=== PATIENT | male | born 1970 | race Caucasian/White ===

== ENCOUNTER 2018-04-09 19:50 | Emergency (ER) | payer BC ==
--- NOTE | 2018-04-09 19:55 | ER Report ---
History and Physical Time Seen By MD: 19:55 HPI/ROS CHIEF COMPLAINT: Hypoxia, fever, cough HISTORY OF PRESENT ILLNESS: 47-year-old male sent over from urgent care with a mildly elevated d-dimer. Patient had a chest x-ray which shows bilateral peribronchial thickening and a right lower lobe infiltrate suspicious for pneumonia. His white blood cell counts normal. His d-dimer slightly elevated at 0.51. Patient was told he needs a CTA pulmonary angiogram to rule out clots. REVIEW OF SYSTEMS: Respiratory: As above Cardiovascular: No chest pain, no palpitations. Gastrointestinal: No vomiting, no abdominal pain. Musculoskeletal: No back pain. Allergies: Coded Allergies: No Known Drug Allergies (Unverified , 04/09/18) Home Meds Active Scripts Levofloxacin 500 Mg Tab (LEVAQUIN 500 MG TAB) 500 Mg Tablet, 500 MG PO DAILY for infection, #6 TAB Prov:BIBI TAYLOR DO 04/09/18 Reported Medications Lisinopril (LISINOPRIL) 10 Mg Tablet, 10 MG PO QDAY, TAB 04/09/18 Atorvastatin Calcium (LIPITOR) 20 Mg Tablet, 1 TAB PO QDAY, TAB 04/09/18 Reviewed Nurses Notes: Yes Old Medical Records Reviewed: Yes Constitutional Vital Sign - Last 24 Hours 04/09/18 04/09/18 04/09/18 04/09/18 19:54 19:56 20:00 20:05 Temp 98.8 Pulse 95 92 Resp 14 B/P (MAP) 143/98 (113) 143/98 151/100 (117) Pulse Ox 91 90 O2 Delivery Room Air 04/09/18 04/09/18 04/09/18 04/09/18 20:20 20:30 20:35 21:01 B/P (MAP) 141/93 (109) 134/89 (104) Pulse Ox 89 89 04/09/18 04/09/18 04/09/18 04/09/18 21:05 21:20 21:30 21:35 Pulse 87 86 77 B/P (MAP) 116/85 (95) Pulse Ox 88 88 88 04/09/18 04/09/18 04/09/18 21:40 21:55 22:00 Pulse 81 B/P (MAP) 124/88 (100) Pulse Ox 89 89 90 Physical Exam General Appearance: The patient is alert, has no immediate need for airway protection and no current signs of toxicity., Pulse ox 88% on room air HEENT: Pupils equal and round no injection. Oropharynx without redness or exudate, mucous. Membranes are moist Respiratory: Chest is non tender, right lower lobe Rales, Cardiac: regular rate and rhythm Gastrointestinal: Abdomen is soft and non tender, no masses, bowel sounds normal. Musculoskeletal: Neck: Neck is supple and non tender. Extremities have full range of motion and are non tender. Skin: No rashes or lesions. DIFFERENTIAL DIAGNOSIS: After history and physical exam differential diagnosis was considered for shortness of breath including but not limited to pulmonary infectious process, COPD, asthma, pulmonary embolus and congestive heart failure. Medical Decision Making EKG/Imaging Imaging Results: CT scan of the CTA pulmonary angiogram was obtained. The results of the study are EXAMINATION: CTA of the chest with IV contrast HISTORY: Hypoxia. Elevated d-dimer. TECHNIQUE: Pulmonary embolus protocol - Thin axial CT images of the chest were obtained with IV contrast during maximal pulmonary arterial opacification. Reconstruction of the source data includes multiplanar 2D coronal and sagittal reconstructed images, and 3D coronal and sagittal MIP images. Hand Cementer images have been stored on PACS. One of the following dose optimization techniques was utilized in the performance of this exam: Automated exposure control; adjustment of the mA and/ or kV according to the patient's size; or use of an iterative reconstruction technique. Specific details can be referenced in the facility's radiology CT exam operational policy. Contrast: 100 mL of IV Isovue-370. COMPARISON: Chest radiograph of earlier today. FINDINGS: Pulmonary arteries: There is suboptimal opacification the pulmonary arteries related to the timing of the contrast bolus. No large central pulmonary artery filling defect to the level of the segmental pulmonary artery branches. Peripheral subsegmental branches are poorly opacified and not well evaluated. Heart, aorta, and great vessels: Normal caliber thoracic aorta, without aneurysm or dissection. Normal heart size. No pericardial effusion. Lungs and pleura: Mild diffuse bronchial wall thickening. There are mild regions of patchy nodular infiltrate in the right lower lobe posteriorly, in the left lung base, and in the lingula, suspicious for an infectious process. No confluent consolidation. No pleural effusion or pneumothorax. Mediastinum and tammy: Negative. Visualized upper abdomen: Fatty infiltration of the liver. Chest wall: Negative. Bones: Negative. IMPRESSION: 1. Suboptimal pulmonary artery opacification. No evidence of any large central pulmonary embolism to the level of the segmental pulmonary artery branches. Peripheral subsegmental branches are poorly evaluated. 2. Small regions of patchy nodular infiltrate in both lungs, most compatible with a multifocal infectious pneumonitis. There is associated bronchial wall thickening compatible with bronchial inflammation. No confluent consolidation. 3. Hepatic steatosis. The study was read by the radiologist. I viewed the images myself on the PACS system. ED Course/Re-evaluation Clinical Indication for ER IV: IV Access ED Course Patient admitted to an examination room. H&P was done. The differential diagnoses was considered. On clinical examination. Patient clinically has pneumonia, but he has a mildly elevated d-dimer. CTA pulmonary angiogram was ordered. There was a suboptimal study. Patient did not want to wait for longer. I do not think he has a pulmonary embolism. His d-dimer is only slightly elevated above normal. Patient be treated with Rocephin and Levaquin here in the emergency department. We continued on Levaquin for several days. He is advised to follow-up with primary care if unimproved. Decision to Disposition Date: Apr 09, 2018 Decision to Disposition Time: 21:08 Depart Departure Latest Vital Signs Vital Signs Date Time Temp Pulse Resp B/P (MAP) Pulse Ox O2 Delivery O2 Flow Rate FiO2 04/09/18 22:00 124/88 (100) 90 04/09/18 21:40 81 04/09/18 19:56 98.8 14 Room Air Impression: Primary Impression: Pneumonia Condition: Improved Disposition: HOME OR SELF-CARE Referrals: RENETTA YANEZ MD (PCP) New Scripts Levofloxacin 500 Mg Tab (LEVAQUIN 500 MG TAB) 500 Mg Tablet 500 MG PO DAILY for infection, #6 TAB Prov: BIBI TAYLOR DO 04/09/18 Patient Instructions: Bacterial Pneumonia (ED) Additional Instructions: Take Robitussin-DM as needed for cough suppression Take ibuprofen 200 mg 3 tablets 3 times a day for fever control Follow-up with primary care if unimproved in 3-5 days Return to the ER for any worsening Problem Qualifiers Primary Impression: Pneumonia Pneumonia type: due to unspecified organism Laterality: right Lung location : lower lobe of lung Qualified Codes: J18.1 - Lobar pneumonia, unspecified organism BIBI TAYLOR DO Apr 09, 2018 19:55
[2018-04-09] MEDS ORDERED: LISI-362 PO (19:56)
[2018-04-09] MEDS ORDERED: ATOR20TA22 PO (19:56)
[2018-04-09] MEDS ORDERED: NS 0.9% 25 ML BAG 75 ML ONE ×2 (20:44→20:55)
[2018-04-09] MEDS ORDERED: IOPAMIDOL 76% 75 ML INFUS BTL 75 ML ONE (20:44)
[2018-04-09] MEDS ORDERED: cefTRIAXone(*) 1 GM VIAL 1 GM in NS(*) 0.9% 100 ML ADDVANT BAG 100 ML IVPB ONE (20:45)
[2018-04-09] MEDS ORDERED: LEVOFLOXACIN 500 MG TAB PO ONE (20:45)
[2018-04-09] MEDS ORDERED: cefTRIAXone 1 GM VIAL ONE (20:48)
[2018-04-09] MEDS ORDERED: IOPAMIDOL 76% 100 ML INFUS BTL 100 ML ONE (20:55)
[2018-04-09] MEDS ORDERED: LEVO-85 PO (21:10)
[2018-04-09] MEDS ORDERED: NS(*) 0.9% 1000 ML BAG 1,000 ML IV ONE (21:15)
--- NOTE | 2018-04-09 21:22 | RADIOLOGY IMAGING REPORT ---
FACILITY: [facility] PATIENT NAME: Gabriel Aguilera : 1970 MR: [id number] V: [id number] EXAM DATE: ORDERING PHYSICIAN: BIBI TAYLOR TECHNOLOGIST: Location: [facility] - [place], [place] Patient: Gabriel Aguilera : 1970 Visit/Account:[id number] Date of Sevice: 04/09/2018 EXAMINATION: CTA of the chest with IV contrast HISTORY: Hypoxia. Elevated d-dimer. TECHNIQUE: Pulmonary embolus protocol - Thin axial CT images of the chest were obtained with IV con trast during maximal pulmonary arterial opacification. Reconstruction of the source data includes mul tiplanar 2D coronal and sagittal reconstructed images, and 3D coronal and sagittal MIP images. Repres entative images have been stored on PACS. One of the following dose optimization techniques was utilized in the performance of this exam: Autom ated exposure control; adjustment of the mA and/or kV according to the patient's size; or use of an i terative reconstruction technique. Specific details can be referenced in the facility's radiology C T exam operational policy. Contrast: 100 mL of IV Isovue-370. COMPARISON: Chest radiograph of earlier today. FINDINGS: Pulmonary arteries: There is suboptimal opacification the pulmonary arteries related to the timing o f the contrast bolus. No large central pulmonary artery filling defect to the level of the segmental pulmonary artery branches. Peripheral subsegmental branches are poorly opacified and not well evaluat ed. Heart, aorta, and great vessels: Normal caliber thoracic aorta, without aneurysm or dissection. Norm al heart size. No pericardial effusion. Lungs and pleura: Mild diffuse bronchial wall thickening. There are mild regions of patchy nodular i nfiltrate in the right lower lobe posteriorly, in the left lung base, and in the lingula, suspicious for an infectious process. No confluent consolidation. No pleural effusion or pneumothorax. Mediastinum and tammy: Negative. Visualized upper abdomen: Fatty infiltration of the liver. Chest wall: Negative. Bones: Negative. IMPRESSION: 1. Suboptimal pulmonary artery opacification. No evidence of any large central pulmonary embolism to the level of the segmental pulmonary artery branches. Peripheral subsegmental branches are poorly dilip luated. 2. Small regions of patchy nodular infiltrate in both lungs, most compatible with a multifocal infect ious pneumonitis. There is associated bronchial wall thickening compatible with bronchial inflammatio n. No confluent consolidation. 3. Hepatic steatosis. Report Dictated By: Ted Murphy MD at 04/09/2018 9:14 PM Report E-Signed By: Ted Murphy MD at 04/09/2018 9:20 PM [id number]
[2018-04-09 22:00] VITALS: BP 124/88
== END 2018-04-09 22:15 | disposition home or self-care (01) ==
LOC: ER 20:08
DX: J18.1 Lobar pneumonia, unspecified organism (principal)
CPT/HCPCS: 71275; 96361; 96365; 99284; J0696; J7030; J7050; Q9967; 96374; 99283

== ENCOUNTER → 2018-04-09 | Outpatient (REF) | payer BC ==
[~2018-04-09] MED LIST: ATOR20TA22 PO; LEVO-85 PO; LISI-362 PO
[2018-04-09 18:46] LABS: PLATELET COUNT, AUTOMATED 210 K/uL (150-450)
== END ==
PROVIDERS: ATTEND Physician Assistant Medical
DX: R07.89 Other chest pain (principal); R50.9 Fever, unspecified
CPT/HCPCS: 82040; 82247; 82310; 82374; 82435; 82565; 82947; 84075; 84132; 84155; 84295; 84450; 84460; 84520; 85025; 85379

== ENCOUNTER 2019-04-06 16:12 | Day surgery (SDC) | payer BC ==
--- NOTE | 2019-04-06 16:22 | ER Report ---
History and Physical Time Seen By MD: 16:22 Hx. of Stated Complaint: Abdominal pain HPI/ROS CHIEF COMPLAINT: abdominal pain HISTORY OF PRESENT ILLNESS: 48 year old male presents to ED with RLQ pain. Patient states the pain started yesterday and was located in lower, mid abdomen. Over the course of a day the pain shifted to the RLQ. Pain is sharp with certain movements and palpation. Patient reports associated symptoms of vomiting, fever. He vomited twice since the pain started. REVIEW OF SYSTEMS: Constitutional: Reports fever, diaphoresis, decreased appetite. Respiratory: No cough, no dyspnea. Cardiovascular: No chest pain, no palpitations. Gastrointestinal: Reports vomiting and abdominal pain. No constipation, no diarrhea. : No dysuria or frequency of urination. Musculoskeletal: No back pain. Allergies: Coded Allergies: No Known Drug Allergies (Unverified , 04/09/18) Home Meds Active Scripts Docusate Sodium (COLACE) 100 Mg Capsule, 100 MG PO BID for 10 Days, #20 CAPSULE 0 Refills Prov:MILAGROS ARIAS MD 04/06/19 Oxycodone Hcl/Acetaminophen (OXYCODONE-ACETAMINOPHEN 5-325) 1 Each Tablet, 1 EACH PO Q4H PRN for PAIN for 7 Days, #15 TAB 0 Refills Prov:MILAGROS ARIAS MD 04/06/19 Reported Medications Lisinopril (LISINOPRIL) 10 Mg Tablet, 10 MG PO QDAY, TAB 04/09/18 Atorvastatin Calcium (LIPITOR) 20 Mg Tablet, 1 TAB PO QDAY, TAB 04/09/18 Discontinued Scripts Levofloxacin 500 Mg Tab (LEVAQUIN 500 MG TAB) 500 Mg Tablet, 500 MG PO DAILY for infection, #6 TAB Prov:BIBI TAYLOR DO 04/09/18 Past Medical/Surgical History Patient has a past medical history of hypertension, hyperlipidemia. Patient has no pertinent surgical history. Reviewed Nurses Notes: Yes Hx Substance Use Disorder: No Hx Alcohol Use: No Constitutional Vital Sign - Last 24 Hours 04/06/19 04/06/19 04/06/19 04/06/19 16:22 16:24 17:12 17:17 Temp 99.9 Pulse 110 95 ??? Resp 20 B/P (MAP) 131/95 (107) 131/95 Pulse Ox 88 94 O2 Delivery Room Air 04/06/19 04/06/19 04/06/192/19 17:42 17:47 17:50 17:52 Temp 99.3 Pulse 92 91 B/P (MAP) 124/87 (99) Pulse Ox 96 96 Physical Exam General Appearance: The patient is alert, has no immediate need for airway protection and no current signs of toxicity. Eyes: Pupils equal and round no injection. Respiratory: Chest is non tender, lungs are clear to auscultation. Cardiac: regular rate and rhythm Gastrointestinal: Abdomen is soft, no masses. Hypoactive bowel sounds. Tender to palpation of RLQ. Reports tenderness in RLQ with palpation of LLQ and RUQ. Mild pain with obturator sign and psoas sign. Musculoskeletal: Neck: Neck is supple and non tender. Extremities have full range of motion and are non tender. Skin: No rashes or lesions. DIFFERENTIAL DIAGNOSIS: After history and physical exam differential diagnosis was considered for appendicitis, diverticulitis, gastritis, UTI, pancreatitis. Medical Decision Making Data Points Result Diagram: 04/06/19 1643 04/06/19 1643 Laboratory Hematology Test 04/06/19 16:33 04/06/19 16:43 Urine Color Yellow Urine Clarity Clear Urine pH 6.0 pH (4.8-9.5) Urine Specific [place] 1.014 Urine Protein Negative mg/dL (NEGATIVE) Urine Glucose (UA) Negative mg/dL (NEGATIVE) Urine Ketones Negative mg/dL (NEGATIVE) Urine Blood Negative (NEGATIVE) Urine Nitrite Negative (NEGATIVE) Urine Bilirubin Negative (NEGATIVE) Urine Urobilinogen 2.0 mg/dL (0.2-1.9) Urine Leukocyte Esterase Negative (NEGATIVE) Urine RBC 1 /HPF (0-2/HPF) Urine WBC <1 /HPF (0-5/HPF) Urine Squamous Epithelial Cells Few /LPF (</=FEW) Urine Bacteria Few /HPF (NONE-FEW) Urine Mucus None /HPF (NONE-FEW) Red Blood Count 6.04 M/uL (4.00-5.60) Mean Corpuscular Volume 88.8 fL (80.0-96.0) Mean Corpuscular Hemoglobin 30.6 pg (26.0-33.0) Mean Corpuscular Hemoglobin Concent 34.5 g/dL (32.0-36.0) Red Cell Distribution Width 13.7 % (11.5-14.5) Mean Platelet Volume 8.5 fL (7.2-11.1) Neutrophils (%) (Auto) 81.1 % (39.4-72.5) Lymphocytes (%) (Auto) 11.0 % (17.6-49.6) Monocytes (%) (Auto) 7.1 % (4.1-12.4) Eosinophils (%) (Auto) 0.2 % (0.4-6.7) Basophils (%) (Auto) 0.6 % (0.3-1.4) Nucleated RBC Relative Count (auto) 0.4 /100WBC Neutrophils # (Auto) 13.9 K/uL (2.0-7.4) Lymphocytes # (Auto) 1.9 K/uL (1.3-3.6) Monocytes # (Auto) 1.2 K/uL (0.3-1.0) Eosinophils # (Auto) 0.0 K/uL (0.0-0.5) Basophils # (Auto) 0.1 K/uL (0.0-0.1) Nucleated RBC Absolute Count (auto) 0.07 K/uL Sodium Level 137 mmol/L (137-145) Potassium Level 3.7 mmol/L (3.5-5.0) Chloride Level 101 mmol/L (98-107) Carbon Dioxide Level 25 mmol/L (22-30) Blood Urea Nitrogen 10 mg/dl (9-21) Creatinine 1.20 mg/dl (0.66-1.25) Glomerular Filtration Rate Calc > 60.0 Random Glucose 113 mg/dl (75-110) Calcium Level 9.0 mg/dl (8.4-10.2) Total Bilirubin 1.9 mg/dl (0.2-1.3) Aspartate Amino Transf (AST/SGOT) 23 U/L (0-35) Alanine Aminotransferase (ALT/SGPT) 34 U/L (0-56) Alkaline Phosphatase 94 U/L (0-126) Total Protein 7.8 g/dl (6.3-8.2) Albumin 4.2 g/dl (3.5-5.0) Amylase Level 72 U/L (0-110) Lipase 66 U/L (23-300) Chemistry Test 04/06/19 16:33 04/06/19 16:43 Urine Color Yellow Urine Clarity Clear Urine pH 6.0 pH (4.8-9.5) Urine Specific [place] 1.014 Urine Protein Negative mg/dL (NEGATIVE) Urine Glucose (UA) Negative mg/dL (NEGATIVE) Urine Ketones Negative mg/dL (NEGATIVE) Urine Blood Negative (NEGATIVE) Urine Nitrite Negative (NEGATIVE) Urine Bilirubin Negative (NEGATIVE) Urine Urobilinogen 2.0 mg/dL (0.2-1.9) Urine Leukocyte Esterase Negative (NEGATIVE) Urine RBC 1 /HPF (0-2/HPF) Urine WBC <1 /HPF (0-5/HPF) Urine Squamous Epithelial Cells Few /LPF (</=FEW) Urine Bacteria Few /HPF (NONE-FEW) Urine Mucus None /HPF (NONE-FEW) White Blood Count 17.1 k/uL (4.5-11.0) Red Blood Count 6.04 M/uL (4.00-5.60) Hemoglobin 18.5 g/dL (14.0-18.0) Hematocrit 53.6 % (42.0-52.0) Mean Corpuscular Volume 88.8 fL (80.0-96.0) Mean Corpuscular Hemoglobin 30.6 pg (26.0-33.0) Mean Corpuscular Hemoglobin Concent 34.5 g/dL (32.0-36.0) Red Cell Distribution Width 13.7 % (11.5-14.5) Platelet Count 275 K/uL (150-450) Mean Platelet Volume 8.5 fL (7.2-11.1) Neutrophils (%) (Auto) 81.1 % (39.4-72.5) Lymphocytes (%) (Auto) 11.0 % (17.6-49.6) Monocytes (%) (Auto) 7.1 % (4.1-12.4) Eosinophils (%) (Auto) 0.2 % (0.4-6.7) Basophils (%) (Auto) 0.6 % (0.3-1.4) Nucleated RBC Relative Count (auto) 0.4 /100WBC Neutrophils # (Auto) 13.9 K/uL (2.0-7.4) Lymphocytes # (Auto) 1.9 K/uL (1.3-3.6) Monocytes # (Auto) 1.2 K/uL (0.3-1.0) Eosinophils # (Auto) 0.0 K/uL (0.0-0.5) Basophils # (Auto) 0.1 K/uL (0.0-0.1) Nucleated RBC Absolute Count (auto) 0.07 K/uL Glomerular Filtration Rate Calc > 60.0 Calcium Level 9.0 mg/dl (8.4-10.2) Total Bilirubin 1.9 mg/dl (0.2-1.3) Aspartate Amino Transf (AST/SGOT) 23 U/L (0-35) Alanine Aminotransferase (ALT/SGPT) 34 U/L (0-56) Alkaline Phosphatase 94 U/L (0-126) Total Protein 7.8 g/dl (6.3-8.2) Albumin 4.2 g/dl (3.5-5.0) Amylase Level 72 U/L (0-110) Lipase 66 U/L (23-300) Urinalysis Test 04/06/19 16:33 Urine Color Yellow Urine Clarity Clear Urine pH 6.0 pH (4.8-9.5) Urine Specific [place] 1.014 Urine Protein Negative mg/dL (NEGATIVE) Urine Glucose (UA) Negative mg/dL (NEGATIVE) Urine Ketones Negative mg/dL (NEGATIVE) Urine Blood Negative (NEGATIVE) Urine Nitrite Negative (NEGATIVE) Urine Bilirubin Negative (NEGATIVE) Urine Urobilinogen 2.0 mg/dL (0.2-1.9) Urine Leukocyte Esterase Negative (NEGATIVE) Urine RBC 1 /HPF (0-2/HPF) Urine WBC <1 /HPF (0-5/HPF) Urine Squamous Epithelial Cells Few /LPF (</=FEW) Urine Bacteria Few /HPF (NONE-FEW) Urine Mucus None /HPF (NONE-FEW) EKG/Imaging Imaging EXAMINATION: CT abdomen and pelvis with contrast COMPARISON: None. HISTORY: Right lower quadrant abdominal pain. PROCEDURE: Multiplanar contrast enhanced CT of the abdomen and pelvis with 95 mL intravenous Isovue 370. One of the following dose optimization techniques was utilized in the performance of this exam: Automated exposure control; adjustment of the mA and/or kV according to the patient's size; or use of an iterative reconstruction technique. Specific details can be referenced in the facility's radiology CT exam operational policy. FINDINGS: Visualized thorax: No acute findings. Liver: Negative. Gallbladder and biliary system: Negative Spleen: Negative. Pancreas: Negative. Adrenal glands: Negative. Kidneys and bladder: Negative. Vessels: Minimal iliac atherosclerosis. Otherwise negative. Bowel and mesentery: The appendix is dilated up to 1.4 cm and there is marked periappendiceal/right lower quadrant inflammation as well as trace fluid tracking along the tissue planes. Focal region of wall discontinuity along the proximal appendix (series 2 image 101 and series 4 image 46) is highly suspicious for perforation. No organized fluid collection or extraluminal gas is identified. Stomach is within normal limits. Mild reactive inflammation along the distal small bowel but no evidence of primary small bowel inflammation. Small amount stool in the colon. No colonic inflammation. Pelvic organs: Negative. Lymph nodes: Right lower quadrant mesentery mildly enlargement is favored to be reactive. Free air/free fluid: In addition to the trace free fluid in the right lower quadrant there is a small amount of nonspecific fluid in the dependent pelvis. No organized fluid collection. No pneumoperitoneum. Musculoskeletal: Small fat-containing left inguinal hernia. Minimal degenerative change. IMPRESSION: Acute likely perforated appendicitis. There is extensive inflammation and changes suggestive of peritonitis in the right lower quadrant but no evidence of abscess or pneumoperitoneum at this time. Results were discussed with TIMO COHEN at 04/06/2019 5:45 PM. Report Dictated By: Sterling Jacob MD at 04/06/2019 5:35 PM Report E-Signed By: Sterling Jacob MD at 04/06/2019 5:46 PM ED Course/Re-evaluation ED Course Upon arrival to the ED, patient admitted to an exam room, hx and physical obtained, differentials considered. Patient presents to ED with RLQ pain. Pain started yesterday and was located in lower, mid abdomen. Over the course of a day the pain shifted to the RLQ. Pain is sharp with certain movements and palpation. Patient reports associated symptoms of vomiting, fever. No frequency or burning of urination. Hypoactive bowel sounds. Tender to palpation of RLQ. Reports tenderness in RLQ with palpation of LLQ and RUQ. Mild pain with obturator sign and psoas sign. CBC, CMP, amylase, lipase, CT of abdomen and pelvis, and UA obtained. IV started, 1000mL NS infused, 4mg zofran administered, 50mcg fentanyl administered. Patient reports fentanyl did no help his pain, so morphine 4mg given. WBC 17.1, Neutrophils 81.1%, UA negative. CT of abdomen findings: Acute likely perforated appendicitis. There is exte nsive inflammation and changes suggestive of peritonitis in the right lower quadrant but no evidence of abscess or pneumoperitoneum at this time. Surgical consult performed, discussed case with Dr. Arias. Will admit patient from ER to the OR for appendectomy. Patient is in agreement with plan of care to have surgery performed. Decision to Disposition Date: Apr 06, 2019 Decision to Disposition Time: 18:36 Depart Departure Latest Vital Signs Vital Signs Date Time Temp Pulse Resp B/P (MAP) Pulse Ox O2 Delivery O2 Flow Rate FiO2 04/06/19 17:52 91 96 04/06/19 17:50 99.3 04/06/19 17:42 124/87 (99) 04/06/19 16:24 20 Room Air Impression: Primary Impression: Appendicitis with peritonitis Condition: Improved Disposition: ADMIT FROM ER TO OR Referrals: RENETTA YANEZ MD (PCP) New Scripts Docusate Sodium (COLACE) 100 Mg Capsule 100 MG PO BID for 10 Days, #20 CAPSULE 0 Refills Prov: MILAGROS ARISA MD 04/06/19 Oxycodone Hcl/Acetaminophen (OXYCODONE-ACETAMINOPHEN 5-325) 1 Each Tablet 1 EACH PO Q4H PRN for PAIN for 7 Days, #15 TAB 0 Refills Prov: MILAGROS ARIAS MD 04/06/19 TIMO COHEN Apr 06, 2019 16:22
[2019-04-06] MEDS ORDERED: NS(*) 0.9% 1000 ML BAG 1,000 ML IV ONE (16:28)
[2019-04-06] MEDS ORDERED: ONDANSETRON 4 MG/2 ML VIAL IVP ONE (16:30)
[2019-04-06] MEDS ORDERED: fentaNYL CITR 100 MCG/2 ML AMP IVP ONE (16:30)
[2019-04-06 16:53] LABS: PLATELET COUNT, AUTOMATED 275 K/uL (150-450)
[2019-04-06] MEDS ORDERED: IOPAMIDOL 76% 100 ML INFUS BTL 100 ML ONE (16:54)
[2019-04-06 17:42] VITALS: BP 124/87
[2019-04-06] MEDS ORDERED: FAMOTIDINE(*) 20MG/50ML PREMIX 50 ML IVPB ONE (17:50)
[2019-04-06] MEDS ORDERED: MORPHINE 4 MG/ML SDV IVP ONE (17:50)
[2019-04-06] MEDS ORDERED: NORMOSOL R SOLN(*) 1000 ML BAG 1,000 ML IV ONE (17:50)
--- NOTE | 2019-04-06 17:50 | RADIOLOGY IMAGING REPORT ---
FACILITY: [facility] PATIENT NAME: aGbriel Aguilera : 1970 MR: [id number] V: [id number] EXAM DATE: ORDERING PHYSICIAN: TIMO COHEN TECHNOLOGIST: Location: [facility] - [place] Patient: Gabriel Aguilera : 1970 Visit/Account:[id number] Date of Sevice: 04/06/2019 EXAMINATION: CT abdomen and pelvis with contrast COMPARISON: None. HISTORY: Right lower quadrant abdominal pain. PROCEDURE: Multiplanar contrast enhanced CT of the abdomen and pelvis with 95 mL intravenous Isovue 3 70. One of the following dose optimization techniques was utilized in the performance of this exam: A utomated exposure control; adjustment of the mA and/or kV according to the patient's size; or use of an iterative reconstruction technique. Specific details can be referenced in the facility's radiolo gy CT exam operational policy. FINDINGS: Visualized thorax: No acute findings. Liver: Negative. Gallbladder and biliary system: Negative Spleen: Negative. Pancreas: Negative. Adrenal glands: Negative. Kidneys and bladder: Negative. Vessels: Minimal iliac atherosclerosis. Otherwise negative. Bowel and mesentery: The appendix is dilated up to 1.4 cm and there is marked periappendiceal/right l ower quadrant inflammation as well as trace fluid tracking along the tissue planes. Focal region of wall discontinuity along the proximal appendix (series 2 image 101 and series 4 image 46) is highly s uspicious for perforation. No organized fluid collection or extraluminal gas is identified. Stomach is within normal limits. Mild reactive inflammation along the distal small bowel but no evid ence of primary small bowel inflammation. Small amount stool in the colon. No colonic inflammation. Pelvic organs: Negative. Lymph nodes: Right lower quadrant mesentery mildly enlargement is favored to be reactive. Free air/free fluid: In addition to the trace free fluid in the right lower quadrant there is a small amount of nonspecific fluid in the dependent pelvis. No organized fluid collection. No pneumoperit oneum. Musculoskeletal: Small fat-containing left inguinal hernia. Minimal degenerative change. IMPRESSION: Acute likely perforated appendicitis. There is extensive inflammation and changes suggestive of víctor tonitis in the right lower quadrant but no evidence of abscess or pneumoperitoneum at this time. Results were discussed with TIMO COHEN at 04/06/2019 5:45 PM. Report Dictated By: Sterling Jacob MD at 04/06/2019 5:35 PM Report E-Signed By: Sterling Jacob MD at 04/06/2019 5:46 PM WSN:[id number]
--- NOTE | 2019-04-06 18:38 | Gen Surgery History & Physical ---
History of Present Illness Chief Complaint Abdominal pain History of Present Illness 48 year old male with past medical history of hypertension and hyperlipidemia who presents with onset of abdominal pain which began yesterday afternoon. He states that he had one bout of emesis last night, and one this morning at 2am. The pain was initially located in the víctor umbilical region and has now migrated to the LLQ. He does endorse feeling warm, but did not have a thermometer to check his temperature. No chills. No previous abdominal surgeries. Had a normal bowel movement yesterday. History Unable To Obtain Past Medical: HTN, HLD Home Meds Reported Medications Lisinopril (LISINOPRIL) 10 Mg Tablet, 10 MG PO QDAY, TAB 04/09/18 Atorvastatin Calcium (LIPITOR) 20 Mg Tablet, 1 TAB PO QDAY, TAB 04/09/18 Discontinued Scripts Levofloxacin 500 Mg Tab (LEVAQUIN 500 MG TAB) 500 Mg Tablet, 500 MG PO DAILY for infection, #6 TAB Prov:BIBI TAYLOR Mathieu DO 04/09/18 Allergies: Coded Allergies: No Known Drug Allergies (Unverified , 04/09/18) Review of Systems All Systems Reviewed/Normal: Yes, Except as Noted Constitutional: Fever (subjective); No Chills Cardiovascular: No Chest Pain Respiratory: No Shortness of Breath Gastrointestinal: Nausea, Vomiting; No Diarrhea, No Constipation, No Hematemesis, No Hematochezia, No Melena; Abdominal Pain Genitourinary: No Dysuria Exam General Appearance: Alert, Awake, No Acute Distress Neuro: No Gross deficits ENT: Moist Mucous Membranes Cardiovascular: Regular Rate and Rhythm Respiratory: No Respiratory Distress GI: Other (obese, nondistended, tender to palpation in the RLQ with associated rebound) Musculoskeletal: No Weakness/Pain Extremities: Warm, Perfused Integumentary: Skin Intact without Lesion / Mass Psych: Alert & Oriented X3, Appropriate Mood & Affect Medical Decision Making Data Points Result Diagram: 04/06/19 1643 04/06/19 1643 EKG / Imaging Monitor Interpretation: Normal Sinus Rhythm Imaging CT Abd/Pelvis - images and report have been reviewed. Pre-Admit Course Medical Record Review: Yes Assessment and Plan Problems: (1) Appendicitis with peritonitis Status: Acute Assessment & Plan: 48 year old male with clinical and radiographic findings consistent with acute appendicitis. I have recommended laparoscopic appendectomy. The risks, benefits, and alternatives of the procedure have been explained to the patient, and informed consent obtained. 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 Time Spent: > 30 min Venous Thromboembolism VTE Risk Physician Assess for VTE Risk: Yes Patient's VTE Risk: Low Antithrombotics Is Pt On Any Antithrombotics?: No MILAGROS SANZ MD Apr 06, 2019 18:38
[2019-04-06] MEDS ORDERED: PIPERACILLIN/TAZO*3.375GM VIAL 3.375 GM in NS(*) 0.9% 100 ML MINI-BAG 100 ML IVPB ONE (18:45)
[2019-04-06] MEDS ORDERED: BUPIVACAINE/EPI 0.5% 50ML VIAL INFIL ONE (18:51)
[2019-04-06] MEDS ORDERED: DEXAMETHASONE SOD PHOS 10MG/ML ONE (19:32)
[2019-04-06] MEDS ORDERED: PROPOFOL EMUL(*) 10MG/ML 20 ML 40 ML ONE (19:32)
[2019-04-06] MEDS ORDERED: ONDANSETRON 4 MG/2 ML VIAL ONE (19:32)
[2019-04-06] MEDS ORDERED: ROCURONIUM BROM 10 MG/ML 10 ML ONE (19:32)
[2019-04-06] MEDS ORDERED: SUCCINYLCHOL CHL 100MG/5ML SYR IVP ONE (19:32)
[2019-04-06] MEDS ORDERED: SUGAMMADEX SOD 500 MG/5 ML SDV ONE (19:33)
[2019-04-06] MEDS ORDERED: OXYC-373 PO (19:52)
[2019-04-06] MEDS ORDERED: DOCU-416 PO (19:52)
[2019-04-06] MEDS ORDERED: oxyCODON/ACET (*)5/325MG (CII) 1 TAB TAB ONE (20:40)
--- NOTE | 2019-04-06 21:30 | NUR ---
2048-PT TRANSFERRED TO MD. STEVEN TO REMAIN IN CARE OF PT AT THIS TIME 2104-ORTHOSTATICS DONE ON PT AT THIS TIME. VSS PT DENIES DIZZINESS AND WEAKNESS ON SITTING AND STANDING. PT APPEARS STEAD ON FEET. PT TRAILED ON ROOM AIR FOR A WALK 2119-PT RETURNS FROM WALK AND O2 SPOT CHECKED. O2 LOW. PLACED BACK ON NC AT 3 LPM. PT ALLOWED T CHANGE CLOTHES AT THIS TIME. PT O2 DROPS QUICKLY DURING THIS WELL. DR SIMMONS CALLED AND HOME O2 ORDER OBTAINED. HOME O2 EXPLAINED TO PT AND SON AND IMPORTANCE OF WEARING HOME O2 IS STRESSED TO PT. DENIES ANY FURTHER QUESTIONS OR CONCERN. 2130-PTS IV DISCONTINUED AT THIS TIME. PT REFUSES PAIN MEDICATIONS AT THIS TIME. 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
[2019-04-06] MEDS ORDERED: oxyCODONE/ACETAMIN 5/325MG TH 2 TAB/BOTTLE ONE (21:39)
--- NOTE | 2019-04-07 00:41 | OPERATIVE REPORT 1 ---
EVENT DATE: April 06, 2019 SURGEON: Simran Arias MD ANESTHESIOLOGIST: Ba Davey MD ANESTHESIA: General endotracheal tube. PREOPERATIVE DIAGNOSIS Acute appendicitis. POSTOPERATIVE DIAGNOSIS Acute appendicitis. PROCEDURE PERFORMED Laparoscopic appendectomy. ESTIMATED BLOOD LOSS 5 mL. SPECIMENS Appendix. COMPLICATIONS None apparent. INDICATIONS FOR PROCEDURE Patient is a 48-year-old male who presented with abdominal pain which began yesterday. The pain was initially periumbilical and then migrated to the right lower quadrant. He had some associated nausea and emesis. He presented to the emergency department, where he was found to have a leukocytosis and tenderness in the right lower quadrant, with CT imaging which demonstrated findings consistent with acute appendicitis. I recommended laparoscopic appendectomy. The risks, benefits, and alternatives of the procedure were explained to the patient, and informed consent was obtained. DESCRIPTION OF PROCEDURE The patient was brought to the operating room, where he was laid in the supine position. Bilateral sequential compression devices were placed on his lower extremities, and general endotracheal tube anesthesia was induced without complication. The patient was then positioned, prepped and draped in the usual sterile fashion, and a time-out was performed, confirming the patient, the procedure, and the administration of preoperative antibiotics with Zosyn IV. The operation commenced with gaining access to the abdomen using a Veress needle in the left upper quadrant. After a positive water-drop test, the abdomen was insufflated to 15 mmHg without complication. A 5 mm Optiview trocar was then inserted into the supraumbilical position. The site of Veress needle insertion was inspected and noted to be atraumatic, and the Veress needle was removed. We proceeded with placement of a 10 mm trocar in the left lower quadrant after infusion of 20 mL of 0.5% Marcaine with epinephrine. An additional 5 mm trocar was placed in the suprapubic position. The patient was then positioned head down and right side up, and we were able to identify the fold of Treves, which was indurated, and there was evidence of inflammation with serous fluid surrounding it, but no evidence of any purulence. There were some adhesions which were obscuring the base of the appendix from view. Therefore, the LigaSure device was used to mobilize the lower lateral portion of the cecum to better expose the base of the appendix. The appendix was significantly dilated and indurated with some ischemic changes on the surface of the appendix, but no evidence of perforation. A LigaSure was used to take the mesentery of the appendix, and a blue load on a surgical stapler was used to fire across the base of the appendix. The specimen was placed in an Endo Catch bag and removed. We then used a suction upholstery cutter to irrigate the region of the appendectomy until the efflux was clear. The site of the appendix staple line was inspected and noted to be hemostatic. It was also noted to be intact. We then proceeded with closure of the 10/12 mm trocar site using a Randy-Kris closure device and an 0 Vicryl suture. The abdomen was then desufflated and the remaining trocars removed. The dermis was reapproximated using 3-0 Vicryl sutures in an interrupted deep dermal fashion. Dermabond was applied to the epidermis. At the completion of the case, sponge, needle, and instrument counts were correct x2, and I was present and scrubbed for the duration of the procedure and was responsible for directing all surgical decision-making. EUGENIA
== END 2019-04-06 20:49 | disposition home or self-care (01) ==
LOC: ER 16:48 → OR 17:53 → CMPBEDREQ 18:00 → OR 20:49
PROVIDERS: ATTEND Surgery
DX: K35.33 Acute appendicitis with perforation, localized peritonitis, and gangrene, with abscess (principal); I10 Essential (primary) hypertension; E78.5 Hyperlipidemia, unspecified; Z79.899 Other long term (current) drug therapy
CPT/HCPCS: 44970; 74177; 81001; 82150; 83690; 85025; 88304; 99284; J0330; J1100; J2270; J2405; J2543; J2704; J3010; J7030; Q9967; 82040; 82247; 82310; 82374; 82435; 82565; 82947; 84075; 84132; 84155; 84295; 84450; 84460; 84520; 99285